=== PATIENT | female | born 1935 | race Caucasian/White ===

== ENCOUNTER 2017-08-18 18:53 | Emergency (ER) | payer OTHER ==
[~2017-08-18] VITALS: Ht 162.6 cm; Wt 97.2 kg
[2017-08-18 19:31] LABS: HEMATOCRIT 34.3 % (36.0-46.0); MCH 30.9 PG (29.0-34.0); MCHC 32.9 G/DL (30.0-36.0); MCV 93.7 FL (83-99); MEAN PLAT.VOLUME 11.4 uM^3 (9.5-12.4); PLATELET COUNT 274 K/uL (156-360); RBC DIS.WIDTH-CV 13.2 % (11.8-14.6); RBC DIS.WIDTH-SD 45.1 % (39-53); RED BLOOD COUNT 3.66 M/uL (3.80-5.20); WHITE BLOOD COUNT 9.6 K/uL (4.1-10.2)
[2017-08-18 19:37] LABS: INTER. NORMALIZED RATIO 3.6; PROTHROMBIN TIME 41.2 SEC (10.2-12.9)
[2017-08-18 19:57] LABS: CHLORIDE 108 mEq/L (99-109)
[2017-08-18 19:58] LABS: POTASSIUM 4.8 mEq/L (3.7-5.4); SODIUM 136 mEq/L (136-147)
[2017-08-18 20:00] LABS: GLUCOSE 245 mg/dL (70-99)
[2017-08-18 20:01] LABS: ANION GAP 10 MEQ/L (2-14)
[2017-08-18 20:02] LABS: TOTAL BILIRUBIN 0.5 mg/dL (0.0-1.0)
[2017-08-18 20:03] LABS: ALKALINE PHOSPHATASE 38 IU/L (3-129); GFR ESTIMATE (CALCULATED) > 59 mL/min/
[2017-08-18 20:05] LABS: UREA NITROGEN (BUN) 21 mg/dL (9-23)
[2017-08-19 00:18] LABS: ADD MIUA? NO; BILIRUBIN NEGATIVE; BLOOD NEGATIVE; COLOR YELLOW ((YELLOW)); GLUCOSE (STRIP) NEGATIVE; KETONES NEGATIVE; LEUKOCYTES NEGATIVE; NITRITE NEGATIVE; PROTEIN (STRIP) NEGATIVE; SPECIFIC GRAVITY 1.034 (1.000-1.030); UCUL ADDED? NO; UROBILINOGEN 0.2 MG/DL (0.2-1.0)
[2017-08-19] MEDS ORDERED: METFORMIN HCL500 MG PO (01:27)
[2017-08-19] MEDS ORDERED: LIPITOR80 MG PO (01:27)
[2017-08-19] MEDS ORDERED: CARDIZEM120 MG PO (01:28)
[2017-08-19] MEDS ORDERED: ZYRTEC10 M2 PO (01:28)
[2017-08-19] MEDS ORDERED: GLUCOSAMINE CH1 EAC2 PO (01:29)
[2017-08-19] MEDS ORDERED: COZAAR50 MG PO (01:29)
[2017-08-19] MEDS ORDERED: LEVOTHYROXINE100 MCG PO (01:29)
[2017-08-19] MEDS ORDERED: PROTONIX40 MG PO (01:30)
[2017-08-19] MEDS ORDERED: VITAMIN C1000 MG PO (01:31)
[2017-08-19] MEDS ORDERED: FOSAMAX70 MG PO (01:31)
[2017-08-19] MEDS ORDERED: COUMADIN3 MG PO (01:31)
[2017-08-19] MEDS ORDERED: FISH OIL + D31 EACH PO (01:32)
[2017-08-19] MEDS ORDERED: ECHINACEA & GO1 EACH PO (01:33)
[2017-08-19] MEDS ORDERED: PROBIOTIC1 EAC2 PO (01:33)
[2017-08-19] MEDS ORDERED: KRISTALOSE20 GM PO (01:34)
[2017-08-19] MEDS ORDERED: COMBIVENT RESPIM4 GM IH (01:36)
[2017-08-19] MEDS ORDERED: ALBUTEROL (01:36)
[2017-08-19] MEDS ORDERED: NORCO 5/3251 TABLET PO (02:18)
[2017-08-19 02:30] VITALS: BP 113/72
== END 2017-08-19 02:56 | disposition home or self-care (01) ==
LOC: EME 18:53
PROVIDERS: Physician Assistant
DX: R10.84 Generalized abdominal pain (principal); K59.00 Constipation, unspecified; R11.0 Nausea; K44.9 Diaphragmatic hernia without obstruction or gangrene; Z90.710 Acquired absence of both cervix and uterus; Z90.49 Acquired absence of other specified parts of digestive tract; I10 Essential (primary) hypertension; E78.5 Hyperlipidemia, unspecified; J44.9 Chronic obstructive pulmonary disease, unspecified; E11.9 Type 2 diabetes mellitus without complications; Z79.84 Long term (current) use of oral hypoglycemic drugs; Z79.01 Long term (current) use of anticoagulants; Z87.891 Personal history of nicotine dependence
CPT/HCPCS: 74177; 80053; 81003; 82010; 85027; 85610; 99281; 99285; J2405; J3010; J7030